=== PATIENT | female | born 1965 ===

== ENCOUNTER 2017-01-20 13:20 | Emergency (ER) | payer MEDICAID ==
[2017-01-20 13:24] VITALS: BP 123/84; PULSE 78; RESP 18; TEMP 97; O2SAT 99
[2017-01-20] MEDS ORDERED: Oxycodone/Acetaminophen 5/325 mg Tab PO STA (13:40)
--- NOTE | 2017-01-20 13:43 | ED PDOC ---
HPI: Back Time Seen by Provider: 01/20/17 13:25 Chief Complaint (Nursing): Back Pain Chief Complaint (Provider): Back pain History Per: Patient History/Exam Limitations: no limitations Onset/Duration Of Symptoms: Days (11) Current Symptoms Are (Timing): Still Present Additional Complaint(s): Patient is a 51 y/o female with no significant past medical history presenting to the emergency department for right lower back pain that radiates to her right knee ongoing for eleven days. Reports that she visited the ED for the same complaint on 01/16/17. Notes that no radiological studies were performed and that she was only prescribed Valium and Naproxen, which provided no significant relief. Applying ice on the area also did not help. Denies dysuria, fall, trauma, or any other complaints. PCP: Dr. Husam Morgan Past Medical History Reviewed: Historical Data, Nursing Documentation, Vital Signs Vital Signs: Last Vital Signs Temp 97 F L 01/20/17 13:22 Pulse 78 01/20/17 13:22 Resp 18 01/20/17 13:22 BP 123/84 01/20/17 13:22 Pulse Ox 99 01/20/17 13:22 - Medical History PMH: No Chronic Diseases - Surgical History Surgical History: No Surg Hx - Family History Family History: States: Unknown Family Hx - Living Arrangements Living Arrangements: With Family - Social History Current smoker - smoking cessation education provided: No Ex-Smoker (has not smoked in the last 12 months): No Alcohol: None Drugs: Denies - Immunization History Hx Tetanus Toxoid Vaccination: No - Home Medications Home Medications: Ambulatory Orders Medication Instructions Recorded Naproxen 1 tab PO BID PRN #14 tab 01/16/17 diaZEpam [Valium] 5 mg PO Q6 PRN #5 tab 01/16/17 Methocarbamol [Robaxin] 750 mg PO Q12 #21 tab 01/20/17 traMADol [Ultram] 50 mg PO Q8 #20 tab 01/20/17 - Allergies Allergies/Adverse Reactions: Allergies Allergy/AdvReac Type Severity Reaction Status Date / Time No Known Allergies Allergy Verified 01/20/17 13:22 Review of Systems ROS Statement: Except As Marked, All Systems Reviewed And Found Negative Genitourinary Female: Negative for: Dysuria Musculoskeletal: Positive for: Back Pain (lower back pain that radiates to right leg, no swelling noted). Negative for: Other (traumatic pain) Physical Exam - Reviewed Nursing Documentation Reviewed: Yes Vital Signs Reviewed: Yes - Physical Exam Appears: Positive for: No Acute Distress Head Exam: Positive for: ATRAUMATIC, NORMAL INSPECTION, NORMOCEPHALIC Skin: Positive for: Normal Color, Warm, Dry. Negative for: Rash Eye Exam: Positive for: Normal appearance Neck: Positive for: Normal Cardiovascular/Chest: Positive for: Regular Rate, Rhythm Respiratory: Positive for: Normal Breath Sounds. Negative for: Accessory Muscle Use, Respiratory Distress Gastrointestinal/Abdominal: Positive for: Normal Exam, Soft. Negative for: Tenderness Back: Positive for: Normal Inspection. Negative for: L CVA Tenderness, R CVA Tenderness, Vertebral Tenderness Extremity: Positive for: Other (Positive straight right leg raise 45 degrees). Negative for: Swelling Neurologic/Psych: Positive for: Alert, Oriented (x3) - Laboratory Results Urine dip results: Negative for: Leukocyte Esterase, Blood, Nitrate, Ketones, Glucose - ECG O2 Sat by Pulse Oximetry: 99 (RA) Pulse Ox Interpretation: Normal Medical Decision Making Medical Decision Making: Time: 13:48 Initial impression: Back pain, likely sciatica Initial plan: ED Urine Dipstick Toradol 60 mg IM Percocet Lumbar Spine X-ray Reevaluation [facility] Reviewed: Patient has Rx from 01/17 for Valium. Rx for Zolpidem 01/07. Xanax 11/18 14:42 Udip negative Discussed x-ray findings with patient. Xray shows no subluxation or fracture. Patient re-evaluated and reports feeling mildly better, pain is improving. Patient is stable for discharge. ~ Scribe Attestation: Documented by Nathalia Law, acting as a scribe for KATHARINE Howard. Provider Scribe Attestation: All medical record entries made by the Scribe were at my direction and personally dictated by me. I have reviewed the chart and agree that the record accurately reflects my personal performance of the history, physical exam, medical decision making, and the department course for this patient. I have also personally directed, reviewed, and agree with the discharge instructions and disposition. Disposition - Clinical Impression Clinical Impression: Sciatic nerve pain - Patient ED Disposition Is Patient to be Admitted: No Counseled Patient/Family Regarding: Studies Performed, Diagnosis, Need For Followup, Rx Given - Disposition Referrals: Husam Morgan MD [Family Provider] - Disposition: Routine/Home Disposition Time: 14:49 Condition: STABLE Additional Instructions: Follow up with your primary medical doctor in 2-5 days for further evaluation. Take medications as prescribed. Return to the emergency department at any time if symptoms persist or worsen. Prescriptions: Methocarbamol [Robaxin] 750 mg PO Q12 #21 tab traMADol [Ultram] 50 mg PO Q8 #20 tab Instructions: Sciatica (ED) Forms: [facility] (Icelandic) Print Language: ALBANIAN - POA Present On Arrival: None
--- NOTE | 2017-01-20 16:12 | RAD ---
PROCEDURE: Radiographs of the Lumbar Spine. HISTORY: low back pain COMPARISON: No prior. FINDINGS: BONES: Normal alignment. No listhesis. No fracture. DISC SPACES: Mild degenerative changes, primarily disc space narrowing L4-5. OTHER FINDINGS: None. IMPRESSION: No significant or acute findings to account for/ related to the clinical presentation.
== END 2017-01-20 15:05 | disposition home or self-care (01) ==
LOC: H.ER 13:20
DX: M54.30 Sciatica, unspecified side (principal)
CPT/HCPCS: 72100; 96372; 99282; J1885